=== PATIENT | male | born 1975 ===

== ENCOUNTER 2025-04-03 09:33 | Outpatient (AMB) | payer OTHER, SELFPAY ==
--- NOTE | 2025-04-03 09:35 | MHC.PC.OV ---
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 Intake Note: patient here for new patient visit Retail Sales Manager Required: Yes Retail Sales Manager Language: Rajeev Hurley Retail Sales Manager Name: [id number] Information Interpreted: non-clinical & clinical Allergies No Known Allergies Allergy (Verified 04/03/25 09:41) Tobacco use date assessed: 04/03/25 Dental Screening Dental Screen Date: 04/03/25 Did you have a dental visit in the last 12 months?: Yes Did you have a dental problem in the last 6 months where you did not have access to dental care?: No Was dental information given to patient?: Patient has dentist HPI HPI Comments History of Present Illness Details 49-year-old Creole speaking male, accompanied by his daughter, presents to establish care. He relocated to [place] from [place] on 05/21/2024 and has not established with a PCP in the [place]. Prior PCP? - None Last office visit/CPE/labs - Early 2023 in [facility] Acute issue(s) - None Past Medical History - Hypertension, myopia Surgical History - None Family History - Mom: HTN, cardiovascular disease Social History - Nonsmoker. Does not vape. Drinks 1-2 beers once monthly. Denies recreational drug use - Has been making healthy dietary choices. Active but does not exercise. Generally sleep well Health maintenance - Last eye exam was in 11/2024 with [facility]. He has a follow up appt next week. Encouraged to sign a release for his PCP to obtain his ophthalmology record - Last dental visit was a years ago; encouraged to schedule an appointment with his dentist for routine dental care - Last tetanus vaccine unknown, likely in 2023. He will obtain his vaccination record for review - Has not been vaccinated for the flu this season; declines vaccination - He has never been vaccinated for shingles - He has never had a colonoscopy. Referred to [facility] gastroenterology for a colonoscopy interpretation by a professional Creole speaking general assistant via electronic tablet. [facility] Medical History (Updated 04/03/25 @ 20:17 by Dennise Mtz CNP) Anxiety Family History (Updated 04/03/25 @ 10:33 by Paula Carmichael MA) Mother High blood pressure Cardiovascular disease Other Lung cancer Social History Housing: Apartment Patient Tobacco Use Status: Never used Tobacco e-Cigarette/Vaping Use: Never Used Second Hand Smoke Exposure: No service: No Current occupational status: unemployed Current occupational exposures/hazards: No Cognitive needs: No Hearing needs: No Vision needs: No Questionnaire PHQ-9 Over the last 2 weeks, how often have you been bothered by any of the following problems? 1. Little interest or pleasure in doing things: not at all 2. Feeling down, depressed, or hopeless: not at all 3. Trouble falling or staying asleep, or sleeping too much: not at all 4. Feeling tired or having little energy: several days 5. Poor appetite or overeating: not at all 6. Feeling bad about yourself - or that you are a failure or have let yourself or your family down: not at all 7. Trouble concentrating on things, such as reading the newspaper or watching television: not at all 8. Moving or speaking so slowly that other people could have noticed. Or the opposite - being so fidgety or restless that you have been moving around a lot more than usual: not at all 9. Thoughts that you would be better off or of hurting yourself in some way: not at all Total score: 1 Depression Screening Interpretation: Negative Depression Screening Done: Yes 94535 - PHQ-9 Billing: Yes Source: Developed by Drs. Caleb Marie, Pushpa Puente, Conner Barnett and colleagues, with an educational klarissa from [employer]. Thrive Questionnaire Date Thrive assessed: 04/03/25 I am a: Patient What is your living situation today?: I choose not to answer this question Within the past 12 months, did the food you bought not last and you didn't have the money to get more?: Never true Within the past 12 months, did you worry whether your food would run out before you got money to buy more?: Never true Do you have trouble paying for medicines?: No Do you have trouble getting transportation to medical appointments?: No Do you have trouble paying your heating and electricity bill?: No Do you have trouble taking care of your child, family member or friend?: No Do you have trouble with day-to-day activities such as bathing, preparing meals, shopping, managing finances, etc.?: No Are you currently unemployed and looking for a job?: Yes Are you interested in more education?: Yes Please select the resources that you would like help with: Job search/training and Education Currently or been in a relationship where the following occur: No concerns reported THRIVE Score: 0 AUDIT C Alcohol Use Questionnaire (AUDIT-C) 1. How often do you have a drink containing alcohol?: Monthly or less 2. How many drinks containing alcohol do you have on a typical day when you are drinking?: 1 or 2 3. How often do you have six or more drinks on one occasion?: Never Total Score: 1 Score Reviewed/Action Taken: Yes MILTON-7 AMB Questionnaire MILTON-7 Date MILTON - 7 assessed: 04/03/25 Feeling nervous, anxious, or on edge: 0 = Not at all Not being able to stop or control worryin = Not at all Worrying too much about different things: 1 = Several days Trouble relaxin = Not at all Being so restless that it is hard to sit still: 0 = Not at all Becoming easily annoyed or irritable: 0 = Not at all Feeling afraid as if something awful might happen: 1 = Several days Total MILTON-7 score (0-4 normal; 5-9 mild; 10-14 moderate; 15-21 severe): 2 Source: Developed by Drs. Caleb Marie, Pushpa Puente, Conenr Barnett and colleagues, with an educational klarissa from [employer]. MILTON-7 Assessment Billing MILTON-7 Assessment Tool: MILTON-7 Assessment 08059 Review of Systems Const Details: Denies chills, Denies fatigue, Denies fever(s), Denies headache(s) and Denies weakness HEENT Denies change in vision, Denies dizziness, Denies headache(s), Denies hearing loss, Denies nasal congestion, Denies sinus pain, Denies sinus pressure and Denies sore throat Card Denies chest pain, Denies lightheadedness, Denies dyspnea and Denies other (palpitations) Resp Denies cough, Denies dyspnea and Denies wheezing GI Denies abdominal pain, Denies melena, Denies hematochezia, Denies change in bowel habits, Denies dyspepsia and Denies nausea Denies hematuria and Denies dysuria Musc Denies abnormal gait, Denies myalgias, Denies arthralgias, Denies numbness and Denies tingling Skin/Breast Denies rash, Denies unusual bruising and Denies wounds Neuro Denies abnormal gait, Denies dizziness, Denies headache(s), Denies memory loss, Denies numbness, Denies Sensory deficit (Neuro), Denies tingling and Denies weakness Psych Denies anxiety, Denies depression and Denies memory loss Endo Denies cold intolerance, Denies fatigue, Denies heat intolerance, Denies polydipsia and Denies polyuria Everardo/Lymph Denies easy bleeding and Denies easy bruising Aller/Immun Denies wheezing Physical exam (Primary Care) Vital Signs: Last Vital Signs Temp 97.8 F 04/03/25 09:47 Pulse 69 04/03/25 09:47 Resp 16 04/03/25 09:47 BP 130/84 04/03/25 09:47 Pulse Ox 97 04/03/25 09:47 Oxygen Delivery Method Room Air 04/03/25 09:47 BMI result Body Mass Index 34.5 Tobacco/Smoking Status: Tobacco use Status Tobacco use date assessed 04/03/25 04/03/25 09:47 Patient Tobacco Use Status Never used Tobacco 04/03/25 09:47 e-Cigarette/Vaping Use Never Used 04/03/25 09:47 PHQ-9: PHQ-9 Score PHQ-9: Total score 1 04/03/25 10:33 Depression Screening Interpretation: Negative Thrive Assessment: Date of Thrive Assessment Date Thrive assessed 04/03/25 04/03/25 09:39 Currently or been in a relationship where the following occur: No concerns reported Const Other: General: no acute distress, well developed, alert and awake Nutritional Appearance: well nourished Orientation/consciousness: patient oriented x3 HENMT Head: Yes normocephalic and Yes atraumatic Ears: hearing grossly normal bilaterally and TM's normal bilaterally General nose exam: Normal external nose present and Normal nares present Mouth: Normal oral and palatal mucosa present and moist mucous membranes Teeth and gingiva: dentition normal Throat: Yes oropharynx normal Eyes Pupils: Equal, round and reactive pupils present and Pupil accommodation reflex normal EOM: EOMs intact bilaterally Neck Neck: Yes normal visual inspection, Yes no lymphadenopathy and Yes trachea midline Thyroid: Thyroid normal Carotids: no bruits Lymphatic: no lymphadenopathy noted Chest Chest palpation & inspection: normal inspection of the chest Resp Effort & Inspection: normal respiratory effort Auscultation: clear to auscultation bilaterally Cardio Rate: regular rate Rhythm: regular rhythm Heart sounds: S1 normal heart sound present, S2 normal heart sound present, no gallops, no murmurs and no rubs Bruits: no abdominal aortic bruits and no carotid bruits GI Palpation (GI): No Abdominal aortic bruit present, Soft to palpation, nontender, No hepatosplenomegaly present and No Rebound tenderness present Auscultation: normal bowel sounds General: Yes no CVA tenderness Back/Spine/Pelvis Back: no CVA tenderness Cervical Spine: cervical ROM normal and No Cervical spine tenderness Thoracic/Lumbar Spine: thoraco-lumbar ROM normal, No pain with thoraco-lumbar ROM, No thoracic spinal tenderness and No lumbar spinal tenderness Skin General: warm and dry. Normal skin color. Normal skin turgor Lesions: no lesions Rashes: no rashes Trauma: no lacerations or abrasions Wounds: no wounds Nails: normal Neuro General: patient oriented x3, gait normal and CN's II-XI intact bilaterally Cranial nerves: Yes Equal, round and reactive pupils present Cognition (Neuro): normal cognition Gait exam (Neuro): Normal gait present Motor exam (neuro): 5/5 motor strength present throughout Sensory Exam: No Sensory deficit (Neuro) Deep tendon reflexes (DTR's): Right patellar reflex intensity grade: 2+ and Left patellar reflex intensity grade: 2+ Extrem General: Yes normal to inspection, No edema and No calf tenderness Psych Appearance: grossly normal Affect: normal affect Attitude: cooperative Thought process: Normal thought process present Coding Level of Care Code New Pt Level 4 (76030) New Pt Prev Care 40-64y(45039) Diagnoses Normal physical examination, routine Z00.00 Hypertension I10 Colon cancer screening Z12.11 Obesity (BMI 30-39.9) E66.9 Vaccine counseling Z71.85 Laboratory tests ordered as part of a complete physical exam (CPE) Z00.00 Additional Codes MILTON-7 Assessment Billing - MILTON-7 Assessment Tool: MILTON-7 Assessment 20347 ([id number]) PHQ-9 - 04387 - PHQ-9 Billing: Yes ([id number]) Assessment & Plan Assessment & Plan (1) Normal physical examination, routine: Code(s): Z00.00 - Encounter for general adult medical examination without abnormal findings Category: Medical Plan: No significant functional limitation noted. Continue current treatment regimen. Routine exercise encouraged. Follow up for a telehealth visit in 1 month for labs review. Return sooner with symptoms or concerns. Verbalized understanding and agreed with the plan. (2) Hypertension: Code(s): I10 - Essential (primary) hypertension Category: Medical Plan: Blood pressure is 130/84, within goal of less than 140/90. Continue current treatment regimen. Low sodium diet encouraged. Will continue to monitor. Verbalized understanding and agreed with the plan. (3) Colon cancer screening: Code(s): Z12.11 - Encounter for screening for malignant neoplasm of colon Category: Medical Plan: He has never had a colonoscopy. Referred to [facility] gastroenterology for a colonoscopy (4) Obesity (BMI 30-39.9): Code(s): E66.9 - Obesity, unspecified Category: Medical Plan: He currently weighs 241 lb, BMI is 34.5. Healthy diet and routine exercise encouraged. Follow up as needed. Verbalized understanding and agreed with the plan. (5) Vaccine counseling: Code(s): Z71.85 - Encounter for immunization safety counseling Category: Medical Plan: He has never been vaccinated for shingles. Instructed on the importance of vaccinations and encouraged to get the shingles vaccines. She may get the vaccines from the local pharmacy. Verbalized understanding and agreed with the plan. (6) Laboratory tests ordered as part of a complete physical exam (CPE): Code(s): Z00.00 - Encounter for general adult medical examination without abnormal findings Category: Medical Plan: Fasting labs ordered as part of a complete physical exam. Advised to fast for at least 10 hours before getting labs drawn. May drink water Verbalized understanding and agreed with treatment plan. Orders: Orders Complete Blood Count Auto Diff Today Z00.00 - Encounter for general adult medical examination without abnormal findings Comprehensive [place]. Panel Fast Today Z00.00 - Encounter for general adult medical examination without abnormal findings Microalbumin, Random (w Creat) Today Z00.00 - Encounter for general adult medical examination without abnormal findings UA CC w/rflx Micro + Cult Today Z00.00 - Encounter for general adult medical examination without abnormal findings Vitamin D 25-OH Total Today Z00.00 - Encounter for general adult medical examination without abnormal findings Lipid Panel Today Z00.00 - Encounter for general adult medical examination without abnormal findings PSA, Ultra Sensitive Today Z00.00 - Encounter for general adult medical examination without abnormal findings TSH reflex Free T4 Today Z00.00 - Encounter for general adult medical examination without abnormal findings Referrals Gastroenterology Referral Z12.11 - Encounter for screening for malignant neoplasm of colon
[2025-04-03 09:47] VITALS: BP 130/84; PULSE 69; RESP 16; TEMP 36.6; O2SAT 97; BMI 34.5
--- OUTSIDE RECORDS SUMMARY | 2025-04-03 10:01 | XMS_ITS | Clinical Summary ---
Author Organization [employer] Address [address] [place] [address] Care Team Providers Care Textile Finisher Name Role Phone Physician, No Pcp Primary Care Provider Unavaila ble Allergies No known active allergies Medications losartan (COZAAR) 50 mg tablet Take 1 tablet (50 mg total) by mouth 1 (one) time each day. 90 each 08/28/2024 Active ibuprofen (ADVIL,MOTRIN) 600 mg tablet Take 1 tablet (600 mg total) by mouth every 6 (six) hours if needed for mild pain or moderate pain. 30 tablet 12/14/2024 Active Active Problems No known active problems Medical History Medical History Date Comments Hypertension Social History Tobacco Use Types Packs/Day Years Used Date Smoking Tobacco: Never Smokeless Tobacco: Never Tobacco Cessation:Counseling Given: Not Answered Alcohol Use Standard Drinks/Week Comments Not Currently 0 (1 standard drink = 0.6 oz pur e alcohol) Sex and Gender Information Value Date Recorded Sex Assigned at Male 08/28/2024 1:12 PM EST Legal Sex Male 2:51 PM EDT Gender Identity Male 08/28/2024 1:12 PM EST Sexual Orientation Straight 12/14/2024 5: 35 PM EDT Obstetrics History Last Filed Vital Signs Vital Sign Reading Time Taken Comments Blood Pressure 167/103 12/14/2024 4:15 PM EDT Pulse 90 12/14/2024 4:15 PM EDT Temperature 36.7 C (98.1 F) 12/14/2024 4:15 PM EDT Respiratory Rate 18 12/14/2024 4:15 PM EDT Oxygen Saturation 96% 12/14/2024 4:15 PM EDT Inhaled Oxygen Concentration - - Weight 113 kg (250 lb) 12/14/2024 4:15 PM EDT Height 182.9 cm (6') 12/14/2024 4:15 PM EDT Body Mass Index 33.91 12/14/2024 4:15 PM EDT Plan of Treatment Health Maintenance Due Date Last Done Comments DTaP,Tdap,and Td Vaccines (1 - Tdap) 1993 Hepatitis B Vaccines (1 of 3 - 19+ 3-dose series) 1993 COVID-19 Vaccine (1 - 2023-2 5 season) 2024 Pneumococcal Vaccine: 50+ Ye ars (1 of 1 - PCV) 2024 Zoster Vaccines (1 of 2) 2024 Cholesterol Screening (Lipid Panel) 07/23/2024 Colorectal Cancer Screening: Colonoscopy 07/23/2024 Depression Screening 07/23/2024 HIV Screening 07/23/2024 Hepatitis C Screening 07/23/2024 Social Influencers of Health Screening 07/23/2024 Hypertension/CHF/CAD Annual BMP Blood Test 08/29/2024 Influenza Vaccine (#1) 2025 HIB Vaccines Aged Out No longer eligi ble based on patient's age to complete this topic HPV Vaccines Aged Out No longer eligi ble based on patient's age to complete this topic Hepatitis A Vaccines Aged Out No long er eligible based on patient's age to complete this topic IPV Vaccines Aged Out No longer eligi ble based on patient's age to complete this topic MMR Vaccines Aged Out No longer eligi ble based on patient's age to complete this topic Meningococcal ACWY Vaccine Aged Out N o longer eligible based on patient's age to complete this topic Meningococcal B Vaccine Aged Out No l onger eligible based on patient's age to complete this topic RSV Immunization Patients Un jhonny 20 months Aged Out No longer eligible b ased on patient's age to complete this topic Varicella Vaccines Aged Out No longer eligible based on patient's age to complete this topic Insurance [facility] Care Teams Textile Finisher Relationship Specialty Start Date End Date Physician, No Pcp PCP - General 08/28/24
== END 2025-04-03 10:29 | disposition home or self-care (01) ==
LOC: HO.HMCFM 09:33
PROVIDERS: PCP Nurse Practitioner Family; Visit Provider Nurse Practitioner Family
DX: Z00.00 Encounter for general adult medical examination without abnormal findings (principal); I10 Essential (primary) hypertension; E66.9 Obesity, unspecified; Z68.34 Body mass index [BMI] 34.0-34.9, adult; Z12.11 Encounter for screening for malignant neoplasm of colon; Z71.85 Encounter for immunization safety counseling

== ENCOUNTER → 2025-04-03 09:33 | Outpatient (BNVA) | payer OTHER, SELFPAY | PROVIDERS: PCP Nurse Practitioner Family; Visit Provider Nurse Practitioner Family | DX: Z00.00 Encounter for general adult medical examination without abnormal findings (principal); I10 Essential (primary) hypertension; E66.9 Obesity, unspecified; Z68.34 Body mass index [BMI] 34.0-34.9, adult; Z71.85 Encounter for immunization safety counseling; Z13.31 Encounter for screening for depression; Z13.30 Encounter for screening examination for mental health and behavioral disorders, unspecified | CPT/HCPCS: 96127; 99386 ==

== ENCOUNTER 2025-04-03 10:46 | Outpatient (REF) | payer OTHER, SELFPAY ==
[2025-04-03 12:19] LABS: MANUAL DIFF FLAG NO
[2025-04-03 12:22] LABS: Hematocrit 44.3 % (42.0-52.0); Hemoglobin 15.0 g/dl (14.0-18.0); Imm Gran Abs Auto 0.01 X10*3/uL (0.00-0.03); Imm Gran Pct Auto 0.2 % (0.0-0.4); Lymphocytes Absolute Auto 2.5 X10*3/uL (1.2-4.9); Mean Corpuscular HGB Conc 33.9 g/dl (31.0-36.0); Mean Corpuscular Hemoglobin 28.3 pg (27.0-33.0); Mean Corpuscular Volume 83.6 fL (80.0-98.0); NRBC Abs Auto 0.000 X10*3/uL (0.0-0.012); NRBC Pct Auto 0.0 /100WBC (0.0-0.2); Platelet Count 206 X10*3/uL (160-400); Red Blood Count 5.30 X10*6/uL (4.60-5.80); White Blood Count 4.8 X10*3/uL (4.8-10.8)
[2025-04-03 12:23] LABS: Appearance Urine Clear; Glucose Urine UA Negative (Negative); PH 7.0 (5.0-9.0); Specific Gravity - Urine 1.025 (1.005-1.025)
[2025-04-03 12:53] LABS: Microalbum/Creatinine Ratio Ur 6.4 ug/mg cr (<30)
[2025-04-03 14:46] LABS: Alanine Aminotransferase 30 U/L (0-40); Albumin Level 4.3 g/dL (3.5-5.0); Alkaline Phosphatase 45 U/L (39-117); Anion Gap 10 (12-20); Aspartate Amino Transferase 25 U/L (5-37); Blood Urea Nitrogen 11 mg/dL (9-16); Calcium 8.9 mg/dL (8.4-10.2); Carbon Dioxide 28 mmol/L (22-29); Chloride 105 mmol/L (96-108); Cholesterol 163 mg/dL (<200); Estimated Glomerular Filt Rate > 60; HDL Cholesterol 44 mg/dL (>40); Potassium 3.9 mmol/L (3.3-5.1); Sodium 139 mmol/L (135-145); Total Protein 6.8 g/dL (6.5-8.0); Triglycerides 80 mg/dL (<150)
[2025-04-06 18:59] LABS: PSA, Ultra Sensitive 1.37 ng/mL
== END 2025-04-03 10:47 | disposition home or self-care (01) ==
LOC: HO.WFDLDS 10:46
PROVIDERS: Visit Provider Nurse Practitioner Family
DX: Z00.00 Encounter for general adult medical examination without abnormal findings (principal)
CPT/HCPCS: 36415; 80053; 80061; 81003; 82043; 82306; 82570; 84153; 84443; 85025

== ENCOUNTER 2025-05-29 15:37 | Outpatient (AMB) | payer OTHER, SELFPAY ==
--- NOTE | 2025-05-29 15:32 | MHC.PC.OV ---
Intake Visit Reasons: Telehealth 1 mos labs review Intake Note: patient here for Telehealth follow up on lab review Ore Charger Required: No Allergies No Known Allergies Allergy (Verified 05/29/25 15:33) Tobacco use date assessed: 05/29/25 Dental Screening Dental Screen Date: 05/29/25 Did you have a dental visit in the last 12 months?: No Did you have a dental problem in the last 6 months where you did not have access to dental care?: No Was dental information given to patient?: No HPI HPI Comments History of Present Illness Details 49-year-old Creole speaking male presents for a telehealth visit for review of recent lab results. He admits to taking his medications as prescribed without adverse reactions. He offers no complaints and denies acute symptoms at this time. Interpretation by professional Creole shale processing technician via telephone. [facility] Medical History (Updated 05/29/25 @ 15:53 by Dennise Mtz CNP) Anxiety Family History (Updated 04/03/25 @ 10:33 by Paula Carmichael MA) Mother High blood pressure Cardiovascular disease Other Lung cancer Social History Housing: Apartment Patient Tobacco Use Status: Never used Tobacco e-Cigarette/Vaping Use: Never Used Second Hand Smoke Exposure: No service: No Current occupational status: unemployed Current occupational exposures/hazards: No Cognitive needs: No Hearing needs: No Vision needs: No Questionnaire Thrive Questionnaire Date Thrive assessed: 04/03/25 I am a: Patient What is your living situation today?: I choose not to answer this question THRIVE Score: 0 MILTON-7 AMB Questionnaire MILTON-7 Date MILTON - 7 assessed: 04/03/25 Source: Developed by Drs. Caleb Marie, Pushpa Puente, Conner Barnett and colleagues, with an educational klarissa from [employer]. Review of Systems Const Details: Denies chills, Denies fatigue, Denies fever(s), Denies headache(s) and Denies weakness Cardiac Denies chest pain, Denies claudication, Denies leg edema, Denies lightheadedness, Denies palpitations, Denies dyspnea, Denies dyspnea on exertion, Denies orthopnea and Denies other (Loss of consciousness) Resp Denies cough, Denies excessive phlegm production, Denies dyspnea, Denies dyspnea on exertion, Denies snoring and Denies wheezing Physical exam (Primary Care) Tobacco/Smoking Status: Tobacco use Status Tobacco use date assessed 05/29/25 05/29/25 15:36 Patient Tobacco Use Status Never used Tobacco 05/29/25 15:36 e-Cigarette/Vaping Use Never Used 05/29/25 15:36 Thrive Assessment: Date of Thrive Assessment Date Thrive assessed 04/03/25 05/29/25 15:36 Const Other: Patient is alert and oriented x3 Telehealth Telehealth Telehealth Platform: Telephone Location of provider rendering services: practice address Location of patient: address on file Patient Identification confirmed using: Name, : Yes Telehealth method: voice only Patient verbally consented to treatment: Yes Patient verbally consented to billing insurance company: Yes Patient informed of any privacy concerns related to visit: Yes Coding Level of Care Code Tele Est Pt Level 3 (99913) Diagnoses Vitamin D deficiency E55.9 Elevated LDL cholesterol level E78.00 Time Spent (min) 15 Assessment & Plan Assessment & Plan (1) Vitamin D deficiency: Code(s): E55.9 - Vitamin D deficiency, unspecified Category: Medical Plan: Recent vitamin-D level is low, 20.8. Vitamin D3 1000 units daily ordered; advised to take as prescribed. Will recheck vitamin-D level in 2 months. Verbalized understanding and agreed with the plan. (2) Elevated LDL cholesterol level: Code(s): E78.00 - Pure hypercholesterolemia, unspecified Category: Medical Plan: LDL level is slightly elevated, 103. Triglycerides, total cholesterol, and HDL levels are normal. Advised to limit foods high in saturated fat and avoid foods high trans fat. Routine exercise encouraged. Will monitor lipid panel level annually or as needed. Verbalized understanding and agreed with the plan. Orders: Orders Vitamin D 25-OH Total 2 Months E55.9 - Vitamin D deficiency, unspecified Medications: New cholecalciferol (vitamin D3) 25 mcg PO DAILY 90 tabs 3RF 90 days
--- OUTSIDE RECORDS SUMMARY | 2025-05-29 16:36 | XMS_ITS | Clinical Summary ---
Author Organization [employer] Address [address] [place] [address] Care Team Providers Care Billboard Installer Name Role Phone Physician, No Pcp Primary [...] Panel) 07/23/2024 Colorectal Cancer Screening: Colonoscopy 07/23/2024 HIV Screening 07/23/2024 Hepatitis C Screening 07/23/2024 Social Influencers of Health Screening 07/23/2024 Hypertension/CHF/CAD Annual BMP Blood Test 08/29/2024 Depression Screening 09/27/2024 Influenza Vaccine (#1) 2025 HIB Vaccines Aged [...] patient's age to complete this topic Insurance [facility] [place] [address] Care Teams Billboard Installer Relationship Specialty Start Date End Date Physician, No Pcp PCP - General 08/28/24
== END 2025-05-29 16:15 | disposition home or self-care (01) ==
LOC: HO.HMCFM 15:37
PROVIDERS: PCP Nurse Practitioner Family; Visit Provider Nurse Practitioner Family
DX: E55.9 Vitamin D deficiency, unspecified (principal); E78.00 Pure hypercholesterolemia, unspecified

== ENCOUNTER 2025-07-19 08:08 | Outpatient (AMB) | payer OTHER, SELFPAY ==
--- NOTE | 2025-07-19 08:17 | A.OFFVIS_ITS ---
Vital Signs 07/19/25 08:20 Height 5 ft 10 in Weight 236 lb BMI 33.9 BP 134/78 Blood Pressure Location Lt brachial Position Sitting Pulse Oximetry (%) 97 Oxygen Delivery Method Room Air Intake Visit Reasons: Colonoscopy Screening Intake Note: Patient new consult for 1st pre Colonoscopy screening. Patient denies any GI issues for today visit. 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 HPI HPI Colonoscopy Screening: Details: Patient is a 50-year-old male with PMH of obesity, hypertension, dyslipidemia. Referred by PCP for pre colonoscopy screening. Ducas reports no GI complaints of diarrhea or constipation. Bowel movements occur regularly every morning, sometimes twice daily. Weight has remained stable over recent months. Patient describes occasional mild heartburn and regurgitation, particularly after late-night eating with immediate lying down, which resolves if eating earlier or delaying bedtime post-meal; no need for medication and no associated dysphagia. No prior GI diagnoses or procedures. Comorbid hypertension, managed with daily losartan; intermittent use of vitamin D3 supplement. N No personal hx CA. No relevant non-GI complaints or comorbid conditions affecting GI management identified. Patient denies: fever/chills, n/v, appetite changes, dysphasia, unintentional wt loss, ab pain or melena/hematochezia. Social hx: -ETOH use socially -denies recreational drug use -non-smoker - family hx as below -denies personal hx of CA -denies significant cardiopulmonary history -tolerated anesthesia in the past without difficulty. [facility] Medical History (Updated 07/19/25 @ 08:49 by Nilsa Shirley CNP) Acid reflux Anxiety Family History Mother High blood pressure Cardiovascular disease Other Lung cancer Social History Housing: Apartment Patient Tobacco Use Status: Never used Tobacco e-Cigarette/Vaping Use: Never Used Second Hand Smoke Exposure: No service: No Current occupational status: unemployed Current occupational exposures/hazards: No Cognitive needs: No Hearing needs: No Vision needs: No Review of Systems Const Reports as per [facility] ENT Reports as per HPI Card Reports as per HPI Resp Reports as per HPI GI Reports as per HPI Reports as per HPI Physical Exam Vital Signs: Last Vital Signs BP 134/78 07/19/25 08:20 Pulse Ox 97 07/19/25 08:20 Oxygen Delivery Method Room Air 07/19/25 08:20 BMI result Body Mass Index 33.9 Const General: healthy appearing, no acute distress and well developed Nutritional Appearance: average body habitus Orientation/consciousness: patient oriented x3 HEENT Head: Yes normal to inspection, Yes normocephalic and Yes atraumatic Face and sinus: Yes normal facial exam Eyes General: appearance normal, both eyes and all related structures Neck Neck: Yes normal visual inspection Resp Effort & Inspection: normal respiratory effort, able to speak in complete sentences, no tracheal deviation and symmetric chest movement Cardio Jugular venous distension: no JVD GI Auscultation: normal bowel sounds Neuro General: patient oriented x3 Gait exam (Neuro): Normal gait present Psych Appearance: grossly normal Mental Status: mental status grossly normal Speech and movement: Normal speech and movement present Affect: normal affect Attitude: cooperative Thought process: Normal thought process present Thought content: Normal thought content present Insight: Good insight present (Psych) Judgement: Good judgement present (Psych) Assessment & Plan Assessment & Plan (1) Colon cancer screening: Code(s): Z12.11 - Encounter for screening for malignant neoplasm of colon Category: Medical Plan: Due for index screening colonoscopy. No alarm features. 03/2025 labs with normal H&H, kidney functions and LFTs Medications: -prescriptions for laxative tablets and miralax sent to pharmacy; instructions for Gatorade purchase and clear liquid diet given. Provided written colonoscopy prep instructions and verbal education regarding timing. Patient educated on scheduling process, procedure preparation, including avoiding certain foods and ensuring clear liquid intake Advised on necessity for ride post-procedure due to sedation. (2) Acid reflux: Code(s): K21.9 - Gastro-esophageal reflux disease without esophagitis Category: Medical Qualifiers: Esophagitis presence: esophagitis presence not specified Qualified Code(s): K21.9 - Gastro-esophageal reflux disease without esophagitis Plan: mild, intermittent w/ classic triggers (late eating/lying down), resolves with lifestyle changes, no alarming features. Additional Testing: EGD offered concurrently with colonoscopy for baseline evaluation given mild reflux/regurgitation. Medication Management: None initiated at present. Lifestyle Recommendations: Avoid eating within 2-3 hrs of bedtime; avoid known triggers. Follow-Up: Review results after procedures and reassess need for ongoing GERD management. Plan Follow-up after endoscopy or sooner as needed Time: I spent a total of 45 minutes on the date of encounter which includes: Preparing to see the patient (reviewed previous documentation, test results and medical history) Performing a medically appropriate exam and/or evaluation Ordering medications, tests, and procedures Documenting clinical information in the health record Orders: Referrals GI Procedure Notification K21.9 - Gastro-esophageal reflux disease without esophagitis, Z12.11 - Encounter for screening for malignant neoplasm of colon Medications: New bisacodyl Take per colonoscopy instructions 20 mg (4 x 5 mg) PO ONCE 4 tabs 0RF polyethylene glycol 3350 (Miralax) per colonoscopy prep instructions 238 grams PO ONCE 238 grams 0RF Coding Level of Care Code New Pt New Pt Level 4 (44963) Patient Type New Diagnoses Colon cancer screening Z12.11 Gastroesophageal reflux disease, unspecified whether esophagitis present K21.9 Esophagitis presence: esophagitis presence not specified
[2025-07-19 08:20] VITALS: BP 134/78; O2SAT 97; BMI 33.9
== END 2025-07-19 09:01 | disposition home or self-care (01) ==
PROVIDERS: PCP Nurse Practitioner Family; Visit Provider Nurse Practitioner Family
DX: Z01.818 Encounter for other preprocedural examination (principal); Z12.11 Encounter for screening for malignant neoplasm of colon; K21.9 Gastro-esophageal reflux disease without esophagitis
CPT/HCPCS: 99204

== ENCOUNTER → 2025-07-19 08:08 | Outpatient (BNVA) | payer OTHER, SELFPAY | PROVIDERS: PCP Nurse Practitioner Family; Visit Provider Nurse Practitioner Family | DX: Z01.818 Encounter for other preprocedural examination (principal); K21.9 Gastro-esophageal reflux disease without esophagitis | CPT/HCPCS: 99202 ==